=== PATIENT | female | born 1945 | race Caucasian/White ===

== ENCOUNTER 2016-09-26 16:28 | Inpatient (IN) | payer MEDICARE ==
[~2016-09-26] VITALS: Ht 157.5 cm; Wt 110.8 kg
[2016-09-26 17:32] VITALS: BP 156/89
[2016-09-26] MEDS ORDERED: HALOPERIDOL 5 MG TABLET PO PRN (17:45)
[2016-09-26] MEDS ORDERED: ZOLPIDEM TARTRATE 10 MG TABLET PO PRN (17:45)
[2016-09-26 18:30] VITALS: BP 141/74
[2016-09-26] MEDS: LORazepam 2 MG TABLET PO PRN (19:26)
[2016-09-26] MEDS ORDERED: PNEUMOCOCCAL VACCINE POLYVALENT 0.5 ML VIAL [PPSV23] IM ONE (19:45)
[2016-09-27 05:30] VITALS: BP 125/74
[2016-09-27] MEDS ORDERED: INFLUENZA VIRUS VACCINE QVS 2016-17 (3YR+)/PF 60 MCG/0.5 ML SYRINGE IM ONE (05:45)
[2016-09-27 08:17] VITALS: BP 123/89
[2016-09-27 09:38] LABS: BASOPHILS % (AUTO) 0.7 % (0.0-2.0); EOSINOPHILS % (AUTO) 0.8 % (1.0-6.0); HEMATOCRIT 42.2 % (36-46); HEMOGLOBIN 13.9 g/dL (12.0-16.0); LYMPHOCYTES # (AUTO) 2.5 K/uL (1.0-4.8); LYMPHOCYTES % (AUTO) 28.5 % (22.0-44.0); MEAN CORPUSCULAR HEMOGLOBIN 28.9 pg (26.0-34.0); MEAN CORPUSCULAR HGB CONC 32.9 G/dL (31.0-37.0); MEAN CORPUSCULAR VOLUME 88 fL (80-100); MONOCYTES # (AUTO) 0.5 K/uL (0.1-1.0); MONOCYTES % (AUTO) 5.5 % (2.0-9.0); NEUTROPHILS # (AUTO) 5.7 K/uL (1.8-7.7); NEUTROPHILS % (AUTO) 64.5 % (40.0-70.0); PLATELET COUNT (AUTO) 287 K/uL (150-450); RED BLOOD CELL COUNT(AUTO) 4.81 MIL/uL (4.00-5.20); RED CELL DISTRIBUTION WIDTH 13.3 % (11.5-14.5); WHITE BLOOD COUNT (AUTO) 8.9 K/uL (4.5-11.0)
[2016-09-27 10:05] LABS: ALANINE AMINOTRANSFERASE 29 U/L (12-78); ALBUMIN 3.3 g/dL (3.4-5.0); ANION GAP 8 mmol/L (8-16); ASPARTATE AMINOTRANSFERASE 17 U/L (15-37); BILIRUBIN,TOTAL 0.4 mg/dL (0.1-1.0); CALCIUM, TOTAL 8.6 mg/dL (8.8-10.5); CARBON DIOXIDE 28 mmol/L (22-29); CHLORIDE 106 mmol/L (98-107); CHOL/HDL RATIO 4.8 (3.9-5.7); CREATININE 0.89 mg/dL (0.60-1.30); GLOMERULAR FILTR. RATE CALC > 60 mL/min (>60); SODIUM SERUM 142 mmol/L (136-145); THYROID STIMULATING HORMONE 3.63 uIU/mL (0.36-3.74); TOTAL PROTEIN, SERUM 6.2 g/dL (6.4-8.2); UREA NITROGEN, BLOOD 12 mg/dL (7-18)
[2016-09-27] MEDS: CITALOPRAM HYDROBROMIDE 20 MG TABLET PO SCH (14:15)
[2016-09-27] MEDS: LORazepam 2 MG TABLET PO PRN (17:46)
[2016-09-27 18:00] VITALS: BP 125/71
[2016-09-27] MEDS ORDERED: IBUPROFEN 400 MG TABLET PO PRN (18:45)
[2016-09-27 20:41] VITALS: BP 120/85
[2016-09-28 06:00] VITALS: BP 121/76
[2016-09-28 08:23] VITALS: BP 156/88
[2016-09-28] MEDS: CITALOPRAM HYDROBROMIDE 20 MG TABLET PO SCH (09:00)
[2016-09-28 11:20] VITALS: BP 121/67
[2016-09-28] MEDS: SERTRALINE HCL 50 MG TABLET PO SCH (12:45)
[2016-09-28] MEDS: LORazepam 2 MG TABLET PO PRN (19:21)
[2016-09-28 19:43] VITALS: BP 127/89
[2016-09-29 04:17] VITALS: BP 125/86
[2016-09-29 08:26] VITALS: BP 161/84
[2016-09-29] MEDS: SERTRALINE HCL 50 MG TABLET PO SCH (09:00)
[2016-09-29] MEDS ORDERED: AmLODIPine BESYLATE 5 MG TABLET PO SCH (09:00)
[2016-09-29] MEDS ORDERED: CloNIDine HCL 0.1 MG TABLET PO PRN (10:45)
[2016-09-29 10:46] VITALS: BP 130/109
[2016-09-29 11:27] VITALS: BP 151/110
[2016-09-29] MEDS: LORazepam 2 MG TABLET PO PRN (13:40)
[2016-09-29] MEDS ORDERED: AmLODIPine BESYLATE 5 MG TABLET PO ONE (13:45)
[2016-09-29 14:21] VITALS: BP 113/76
[2016-09-29] MEDS ORDERED: AMLO2.5T2 PO (15:43)
[2016-09-29] MEDS ORDERED: SERT25TA PO (15:43)
[2016-09-29 16:09] VITALS: BP 125/69
[2016-09-30] MEDS ORDERED: AmLODIPine BESYLATE 10 MG TABLET PO SCH (09:00)
== END 2016-09-29 18:30 | disposition home or self-care (01) | DRG 881 ==
LOC: B2X 17:59
PROVIDERS: ADMIT Psychiatry & Neurology Psychiatry; ATTEND Psychiatry & Neurology Psychiatry
DX: F32.9 Major depressive disorder, single episode, unspecified (principal); F31.9 Bipolar disorder, unspecified; E78.5 Hyperlipidemia, unspecified; I10 Essential (primary) hypertension; R00.0 Tachycardia, unspecified; Z53.29 Procedure and treatment not carried out because of patient's decision for other reasons; F99 Mental disorder, not otherwise specified; F10.10 Alcohol abuse, uncomplicated; F19.10 Other psychoactive substance abuse, uncomplicated; M19.90 Unspecified osteoarthritis, unspecified site; Z88.5 Allergy status to narcotic agent; Z90.49 Acquired absence of other specified parts of digestive tract; Z90.722 Acquired absence of ovaries, bilateral
CPT/HCPCS: 84436; 84439; 84443; 90471